=== PATIENT | female | born 1955 | race African-American/Black ===

== ENCOUNTER 2024-07-26 18:16 | Emergency (ER) | payer OTHER ==
[2024-07-26 19:04] VITALS: BP 160/110; PULSE 102; RESP 17; TEMP 98.7; BMI 22.5
[2024-07-26] MEDS ORDERED: ONDANSETRON 4 MG/2 ML VIAL ONE (19:41)
[2024-07-26] MEDS: ONDANSETRON 4 MG/2 ML VIAL IVPB ONE (20:02)
[2024-07-26] MEDS: SODIUM CHLORIDE 0.9% 500 ML INFUS.BAG IV ONE (20:02)
[2024-07-26 20:15] LABS: BASO % 0.5 % (0-2.0); EOS % 0.3 % (0-4.5); HEMATOCRIT 39.4 % (32.4-45.2); HEMOGLOBIN 12.5 GM/dL (10.7-15.3); LYMPH % 12.7 % (8-40); MCH 22.1 pg (25.7-33.7); MCHC 31.9 g/dl (32.0-36.0); MEAN CELL VOLUME 69.5 fl (80-96); MEAN PLT VOLUME 7.4 fl (7.5-11.1); MONO % 3.5 % (3.8-10.2); PLATELET COUNT 347 10^3/uL (134-434); RBC 5.67 M/mm3 (3.60-5.2)
[2024-07-26 20:35] LABS: LACTIC ACID 2.1 mmol/L (0.4-2.0)
[2024-07-26 20:51] LABS: CHLORIDE 105 mmol/L (98-107); SODIUM 136 mmol/L (136-145)
[2024-07-26 20:52] LABS: CALCIUM 9.1 mg/dL (8.5-10.1)
[2024-07-26 20:53] LABS: ALBUMIN 3.6 g/dl (3.4-5.0); POTASSIUM 7.4 mmol/L (3.5-5.1)
[2024-07-26 20:54] LABS: ANION GAP 7 mmol/L (4-13); CO2 24 mmol/L (21-32); GLUCOSE,RANDOM 173 mg/dL (74-106); MAGNESIUM 2.1 mg/dL (1.8-2.4)
[2024-07-26 20:58] LABS: BILIRUBIN,TOTAL 1.4 mg/dL (0.2-1); SGOT/AST 110 U/L (15-37)
[2024-07-26 20:59] LABS: ALK PHOS 94 U/L (45-117)
[2024-07-26 21:01] LABS: SGPT/ALT 29 U/L (13-61)
[2024-07-26 21:34] LABS: URINE APPEARANCE CLEAR; URINE BILIRUBIN NEGATIVE (NEGATIVE); URINE COLOR YELLOW; URINE GLUCOSE (UA) NEGATIVE (NEGATIVE); URINE KETONE NEGATIVE (NEGATIVE); URINE LEUK ESTERASE NEGATIVE (NEGATIVE); URINE NITRITE NEGATIVE (NEGATIVE); URINE PROTEIN TRACE (NEGATIVE); URINE UROBILINOGEN 0.2 mg/dL (0.2-1.0)
[2024-07-26 21:51] LABS: POTASSIUM 4.1 mmol/L (3.5-5.1)
[2024-07-26 21:53] LABS: BLOOD UREA NITROGEN 9.8 mg/dL (7-18); CALCIUM 8.6 mg/dL (8.5-10.1)
[2024-07-26 21:57] LABS: CREATININE 0.7 mg/dL (0.55-1.3)
== END 2024-07-26 23:06 | disposition home or self-care (01) ==
LOC: JER 18:16
PROC: 3E033GC Introduction of Other Therapeutic Substance into Peripheral Vein, Percutaneous Approach (ICD-10-PCS; principal; 2024-07-26)
DX: R11.2 Nausea with vomiting, unspecified (principal)
CPT/HCPCS: 36415; 71045-TC-FY; 74177-TC; 80048; 80053; 81003; 83605; 83690; 83735; 84484; 85025; 87086; 93005; 93010; 99285-25; Q9967